=== PATIENT | female | born 1975 | race Caucasian/White ===

== ENCOUNTER 2023-05-03 08:30 | Day surgery (SDC) | payer BC ==
[~2023-05-03 08:30] MED LIST: Lactated Ringers 1,000 ML IV SCH; Sodium Chloride 0.9% 10 ML Syringe FLUSH PRN; Sodium Chloride 0.9% 2.5 ML Syringe FLUSH PRN; Sodium Chloride 0.9% 20 ML SDV IV PRN
[2023-05-03] MEDS ORDERED: Lidocaine 2% 100 MG/5 ML Syringe ONE (09:00)
[2023-05-03] MEDS ORDERED: propofoL 50 ML ONE (09:00)
[2023-05-03] MEDS ORDERED: Lidocaine 2% 5 ML SDV ONE (09:00)
[2023-05-03] MEDS ORDERED: Ondansetron 4 MG/2 ML SDV ONE (10:10)
== END 2023-05-03 10:52 | disposition home or self-care (01) ==
LOC: MW.SDS 08:30
PROVIDERS: ATTEND Surgery
DX: K58.9 Irritable bowel syndrome, unspecified (principal); K29.50 Unspecified chronic gastritis without bleeding; F41.9 Anxiety disorder, unspecified; E11.9 Type 2 diabetes mellitus without complications; Z79.85 Long-term (current) use of injectable non-insulin antidiabetic drugs; Z79.899 Other long term (current) drug therapy
CPT/HCPCS: 43239; 45380; J2405; J2704; J7120; 00813; J3490